=== PATIENT | female | born 1965 | race Caucasian/White ===

== ENCOUNTER 2016-12-13 19:58 | Emergency (ER) | payer SELFPAY ==
[2016-12-13] MEDS ORDERED: NORMAL SALINE 1000 ML 1,000 ML IV ONE (21:01)
[2016-12-13] MEDS ORDERED: ONDANSETRON HCL INJ/PF 4 MG/2 ML SDV IV ONE (21:01)
[2016-12-13 21:59] LABS: ALANINE AMINOTRANSFERASE 16 U/L (9-52); ALKALINE PHOSPHATASE 88 U/L (38-126); ANION GAP 17 (5-19); ASPARTATE AMINO TRANSFERASE 26 U/L (14-36); BILIRUBIN,DIRECT 0.4 mg/dL (0.0-0.4); BILIRUBIN,TOTAL 0.6 mg/dL (0.2-1.3); BLOOD UREA NITROGEN 10 mg/dL (7-20); CARBON DIOXIDE 23 mmol/L (22-30); CHLORIDE 102 mmol/L (98-107); CREATININE RESULT 0.55 mg/dL (0.52-1.25); GLUCOSE 276 mg/dL (75-110); POTASSIUM 3.7 mmol/L (3.6-5.0); SODIUM 142.2 mmol/L (137-145); TOTAL PROTEIN 8.9 g/dL (6.3-8.2)
[2016-12-13 22:11] LABS: HEMATOCRIT 33.3 % (36.0-47.0); HEMOGLOBIN 10.6 g/dL (12.0-15.5); HGB HCT DIFFERENCE -1.5; MEAN CORPUSCULAR HEMOGLOBIN 25.2 pg (27.0-33.4); MEAN CORPUSCULAR HGB CONC 31.8 g/dL (32.0-36.0); MEAN CORPUSCULAR VOLUME 79 fl (80-97); RED CELL DISTRIBUTION WIDTH 18.1 % (11.5-14.0); WHITE BLOOD COUNT 15.4 10^3/uL (4.0-10.5)
[2016-12-13 22:17] LABS: APPEARANCE,URINE CLEAR; BILIRUBIN,URINE NEGATIVE (NEGATIVE); GLUCOSE, URINE >=500 mg/dL (NEGATIVE); KETONES,URINE 80 mg/dL (NEGATIVE); LEUKOCYTE ESTERASE,URINE NEGATIVE (NEGATIVE); NITRITE,URINE NEGATIVE (NEGATIVE); PROTEIN,URINE 100 mg/dL (NEGATIVE); URINE SPECIFIC GRAVITY 1.024; UROBILINOGEN,URINE NEGATIVE mg/dL (<2.0)
[2016-12-13 22:51] LABS: BASOPHILS % (MANUAL) 0 % (0-2); EOSINOPHILS % (MANUAL) 0 % (0-6); LYMPHOCYTES % (MANUAL) 1 % (13-45); TOTAL CELLS COUNTED 100
[2016-12-13 22:53] LABS: TOXIC GRANULATION SLIGHT
[2016-12-13 22:54] LABS: ANISOCYTOSIS 2+; MICROCYTOSIS SLIGHT; OVALOCYTES SLIGHT; SCHISTOCYTES SLIGHT
[2016-12-13] MEDS ORDERED: MAG HYDROX/AL HYDROX/SIMETH SUSP 30 ML UDCUP PO ONE (23:41)
[2016-12-13] MEDS ORDERED: LIDOCAINE 2% VISCOUS SOLN 20 ML UDCUP PO ONE (23:41)
[2016-12-13] MEDS ORDERED: METOCLOPRAMIDE HCL ORAL SOLN 10 MG/10 ML UDCUP PO ONE (23:41)
--- NOTE | 2016-12-13 23:42 | ER Document Report ---
ED General - General Chief Complaint: Vomiting Stated Complaint: VOMITING Time Seen by Provider: 12/13/16 23:10 Notes: Patient is a 51-year-old female with past medical history of insulin-dependent diabetes who presents with 24 hours of epigastric abdominal pain with nonbilious vomiting. Does describe the pain as a dull, constant, cramping pain that has remained constant since onset. Patient does have a history of gastroparesis and states that this feels very similar to prior episodes of exacerbation of that underlying condition. She does not have anything available to try at home to treat her symptoms because she does not currently have a physician. She has been able to tolerate oral intake. Nothing seems to worsen her symptoms. She continues to have bowel movements and pass flatus. She denies any history of obstructions. She denies any chest pain or shortness of breath. She has not had any melena or hematochezia. No hematemesis. TRAVEL OUTSIDE OF THE [place] IN LAST 30 DAYS: No - Related Data Allergies/Adverse Reactions: codeine [Codeine] Allergy (Verified 04/07/13 12:15) Past Medical History - General Information source: Patient - Social History Smoking Status: Unknown if Ever Smoked Frequency of alcohol use: None Drug Abuse: None Lives with: Spouse/Significant other Family History: DM Patient has suicidal ideation: No Patient has homicidal ideation: No Pulmonary Medical History: Denies: Hx Tuberculosis Endocrine Medical History: Reports: Hx Diabetes Mellitus Type 1 Renal/ Medical History: Denies: Hx Peritoneal Dialysis Past Surgical History: Reports: Hx Section - 2, Hx Cholecystectomy. Denies: Hx Pacemaker - Immunizations Hx Diphtheria, Pertussis, Tetanus Vaccination: No Review of Systems - Review of Systems Notes: Constitutional: Negative for fever. HENT: Negative for sore throat. Eyes: Negative for visual changes. Cardiovascular: Negative for chest pain. Respiratory: Negative for shortness of breath. Gastrointestinal: Positive for abdominal pain vomiting Genitourinary: Negative for dysuria. Musculoskeletal: Negative for back pain. Skin: Negative for rash. Neurological: Negative for headaches, weakness or numbness. 10 point ROS negative except as marked above and in HPI. Physical Exam - Vital signs Vitals: Temp Pulse Resp BP Pulse Ox 98.7 F 89 18 183/85 H 98 12/13/16 20:25 12/13/16 20:25 12/13/16 20:25 12/13/16 20:25 12/13/16 20:25 Interpretation: Hypertensive Notes: PHYSICAL EXAMINATION: GENERAL: Well-appearing, well-nourished and in no acute distress. HEAD: Atraumatic, normocephalic. EYES: Pupils equal round and reactive to light, extraocular movements intact, sclera anicteric, conjunctiva are normal. ENT: nares patent, oropharynx clear without exudates. Moist mucous membranes. NECK: Normal range of motion, supple without lymphadenopathy LUNGS: Breath sounds clear to auscultation bilaterally and equal. No wheezes rales or rhonchi. HEART: Regular rate and rhythm without murmurs ABDOMEN: Soft, mild epigastric tenderness to palpation otherwise no focal areas of tenderness, normoactive bowel sounds. No guarding, no rebound. No masses appreciated. EXTREMITIES: Normal range of motion, no pitting or edema. No cyanosis. NEUROLOGICAL: No focal neurological deficits. Moves all extremities spontaneously and on command. PSYCH: Normal mood, normal affect. SKIN: Warm, Dry, normal turgor, no rashes or lesions noted. Course - Re-evaluation Re-evalutation: 12/13/16 23:46 Patient presents with epigastric abdominal pain with associated vomiting, consistent with likely gastroparesis. Patient has no focal abdominal tenderness on examination. Mild epigastric abdominal tenderness. Lipase is normal. No LFT changes. Based on history and exam, I do not suspect ACS, pulmonary embolus, SBO, mesenteric ischemia, acute pancreatitis, biliary pathology, or an abdominal aortic dissection. Patient has had improvement of symptoms here with a GI cocktail. At this time will discharge with return precautions and follow-up recommendations. Verbal discharge instructions given a the bedside and opportunity for questions given. Medication warnings reviewed. Patient is in agreement with this plan and has verbalized understanding of return precautions and the need for primary care follow-up in the next 24-72 hours. - Vital Signs Vital signs: Temp Pulse Resp BP Pulse Ox 98.3 F 91 14 133/75 H 96 12/14/16 01:09 12/14/16 01:09 12/14/16 01:09 12/14/16 01:01 12/14/16 01:01 - Laboratory Result Diagrams: 12/13/16 22:00 12/13/16 21:25 Laboratory results interpreted by me: 12/13/16 12/13/16 12/13/16 21:25 21:25 22:00 WBC 15.4 H Hgb 10.6 L Hct 33.3 L MCV 79 L MCH 25.2 L MCHC 31.8 L RDW 18.1 H Seg Neuts % (Manual) 98 H Lymphocytes % (Manual) 1 L Monocytes % (Manual) 1 L Abs Neuts (Manual) 15.1 H Abs Lymphs (Manual) 0.2 L Glucose 276 H Total Protein 8.9 H Urine Protein 100 H Urine Glucose (UA) >=500 H Urine Ketones 80 H Urine Blood SMALL H Discharge - Discharge Clinical Impression: Gastroparesis Nausea and vomiting Qualifiers: Vomiting type: unspecified Vomiting Intractability: non-intractable Qualified Code(s): R11.2 - Nausea with vomiting, unspecified Condition: Good Disposition: HOME, SELF-CARE Additional Instructions: You may take the Reglan that you have been sent home with as needed for nausea. Use the rectal Phenergan for failure of the oral Reglan. Please follow-up at your earliest ability with a primary care doctor for management of your long- term diabetes. Return for worsening pain, inability to tolerate oral intake for more than 12 hours, fever of greater than 101F, or any other symptoms that are worrisome to you. Prescriptions: Metoclopramide HCl [Reglan 10 mg Tablet] 10 mg PO TID PRN #30 tablet PRN Reason: Promethazine HCl [Phenergan 25 mg Supp.rect] 1 supp CO Q6H #12 supp.rect
[2016-12-14] LABS: ADD ON TESTING BLD IN LAB ACKNOWLEDGE
[2016-12-14 00:10] LABS: LIPASE 87.9 U/L (23-300)
[2016-12-14 01:02] VITALS: BP 133/75
== END 2016-12-14 01:09 | disposition home or self-care (01) ==
LOC: ER 19:58
DX: K31.84 Gastroparesis (principal); R11.2 Nausea with vomiting, unspecified; R10.13 Epigastric pain; E11.9 Type 2 diabetes mellitus without complications; Z79.4 Long term (current) use of insulin
CPT/HCPCS: 99284; 96361; 96374; 36415; 83690; 85025; 80053; 81001; J3490; J2405; J7030

== ENCOUNTER 2017-03-06 05:01 | Emergency (ER) | payer SELFPAY ==
[2017-03-06] MEDS ORDERED: ROCURONIUM BROMIDE INJ 50 MG/5 ML VIAL IV ONE ×2 (05:23→10:22)
[2017-03-06] MEDS ORDERED: MIDAZOLAM HCL 100 ML IV PRN (05:23)
--- NOTE | 2017-03-06 05:30 | ER Document Report ---
ED General - General Stated Complaint: RESPIRATORY DISTRESS Time Seen by Provider: 03/06/17 05:19 Notes: Patient is a 51-year-old female presents with complaint of cardiac arrest. She was last seen normal by the family around 10 PM. They went to check on her and found her unresponsive. Paramedics were called. Paramedics arrived she was in asystole. Paramedics perform CPR for over 10 minutes. She received 5 rounds of epinephrine. The only other rhythm changes that had were asystole and PEA and eventually she had return of spontaneous circulation. They got return of circulation after the fifth epinephrine. She was intubated with a Oscar airway. She was then brought to the ER. She arrives with sinus tachycardia with left bundle branch block. She is breathing on her own however she has no other neurologic signs. Paramedics deny her having any movement of the arms or legs. The only thing patient was given was a small amount of Versed when she started breathing over the manual ventilation. Paramedics do not think the family had any concern for drug abuse. She does have history of type 1 diabetes. No other history is obtainable at this time. TRAVEL OUTSIDE OF THE [place] IN LAST 30 DAYS: No - Related Data Allergies/Adverse Reactions: codeine [Codeine] Allergy (Verified 03/06/17 07:45) Past Medical History - Social History Smoking Status: Unknown if Ever Smoked Frequency of alcohol use: uknown Drug Abuse: Other - unknown Family History: DM Pulmonary Medical History: Denies: Hx Tuberculosis Endocrine Medical History: Reports: Hx Diabetes Mellitus Type 1 Renal/ Medical History: Denies: Hx Peritoneal Dialysis Past Surgical History: Reports: Hx Section - 2, Hx Cholecystectomy. Denies: Hx Pacemaker - Immunizations Hx Diphtheria, Pertussis, Tetanus Vaccination: No Review of Systems - Review of Systems -: Yes ROS unobtainable due to patient's medical condition - Patient isunresponsive and unable to contribute to history. Physical Exam - Vital signs Vitals: Pulse Ox 83 L 03/06/17 05:02 - Notes Notes: General Appearance: Patient comes in unresponsive receiving assisted ventilation. Vitals: reviewed, See vital signs table. Head: no swelling or tenderness to the head Eyes: PERRL, EOMI, Conjuctiva clear Mouth: Oscar airway in place. Throat: No tonsillar inflammation, No airway obstruction, No lymphadenopathy Lungs: No wheezing, No rales, No rhonci, No accessory muscle use, good air exchange bilaterally. Heart: Cardiac rate, Regular rythm, No murmur, no rub Abdomen: Normal BS, soft, No rigidity, No abdominal tenderness, No guarding, no rebound, no abdominal masses, no organomegaly Extremities: good pulses in all extremities, no swelling or tenderness in the extremities, no edema. Skin: warm, dry, appropriate color, no rash Neuro: Patient does have spontaneous respirations. Pupils are 3-4 mm and reactive to light. She has no spontaneous movements of the extremities. No response to painful stimuli. Course - Re-evaluation Re-evalutation: 03/06/17 07:34 His family that she will. The says that he checked around 2 AM and she was sleeping soundly without complications. He woke up little before 5 AM the patient was gurgling and making snoring respirations. That is when he called the indolence. Family says that there is no history of drug abuse and they do not suspect this at all. She is a type I diabetic but says her blood sugars have been doing fairly well. She has had no recent fevers or infections. She felt well last night before going to bed. She was started become hypotensive shortly after getting here. Even after fluid boluses she continued to become a little hypotensive and therefore I placed a central line in place her Justo- Synephrine. I chose Justo-Synephrine because patient was very tachycardic in the 140s to low 150s. Justo-Synephrine running at a low rate. This is stabilized her blood pressure heart rate has come down to low 100s. She has been stable. Patient does have elevated cardiac enzymes. This could be relation to an GA that caused her cardiac arrest or could just be related to her being hypoxic for prolonged period time. Patient has hypokalemia have ordered a K rider. Patient has some acidosis which is to be expected since she was pulseless. Her only neurologic function remains to be normal pupils with reaction as well as breathing on her own. She still does not have any purposeful movement of her extremities. I did speak with Dr. Paris, plant electrician at [facility], who agrees to accept the patient. Patient will be transferred via [facility] to [facility]. Family is agreeable to plan. 03/06/17 07:37 Dictation of this chart was performed using voice recognition software; therefore, there may be some unintended grammatical errors. - Vital Signs Vital signs: Temp Pulse Resp BP Pulse Ox 96.5 F L 16 133/92 H 100 03/06/17 08:05 03/06/17 08:05 03/06/17 08:05 03/06/17 08:05 - Laboratory Result Diagrams: 03/06/17 05:05 03/06/17 05:05 Laboratory results interpreted by me: 03/06/17 03/06/17 03/06/17 05:05 05:05 05:05 WBC 24.6 H Hgb 9.4 L Hct 29.6 L MCH 25.3 L MCHC 31.7 L RDW 18.0 H Abs Neuts (Manual) 17.5 H Abs Monocytes (Manual) 2.5 H Potassium 3.2 L Carbon Dioxide 16 L Anion Gap 20 H Glucose 363 H POC Glucose Calcium 8.0 L AST 308 H ALT 204 H Creatine Kinase 1116 H CK-MB (CK-2) 78.20 H Total Protein 5.9 L Albumin 3.4 L 03/06/17 05:12 WBC Hgb Hct MCH MCHC RDW Abs Neuts (Manual) Abs Monocytes (Manual) Potassium Carbon Dioxide Anion Gap Glucose POC Glucose 378 H Calcium AST ALT Creatine Kinase CK-MB (CK-2) Total Protein Albumin - EKG Interpretation by Me Additional EKG results interpreted by me: 03/06/17 05:28 EKG is reviewed and interpreted by me. EKG shows sinus tachycardia with a rate of 146 bpm. Patient does have a left bundle branch block which is old in comparison to her previous EKG from August 20, 2011. There is duration and QTc intervals are prolonged. Procedures - Central Line Left Internal jugular Consent obtained: No - emergent Central line lumen type: Triple Ultrasound guided: Yes CM at insertion site: 17 Line secured with sutures: Yes Central line post-insertion: Blood return from lumens, Biopatch applied, Sutured , Sterile dressing applied, Position confirmed w/ CXR Number of attempts: 1 - Intubation Orotracheal Airway evaluation: Normal anatomy Mallampati Classification: Class 1 Intubation method: Orotracheal Blade size: 3 Equipment used: Glidescope ETT size: 7.5 ETT secured at: Gums ETT secured at (cm): 23 Breath Sounds after Intubation: Equal Intubation Complications: No complications Critical Care Note - Critical Care Note Total time excluding time spent on procedures (mins): 90 Comments: Critical care time for this patient not including time spent on procedures approximately 90 minutes due to frequent re-evaluations, management of hypertension, management post cardiac risk care, discussion with specialist and family.
[2017-03-06 05:34] LABS: HEMATOCRIT 29.6 % (36.0-47.0); HEMOGLOBIN 9.4 g/dL (12.0-15.5); MEAN CORPUSCULAR HEMOGLOBIN 25.3 pg (27.0-33.4); MEAN CORPUSCULAR HGB CONC 31.7 g/dL (32.0-36.0); MEAN CORPUSCULAR VOLUME 80 fl (80-97); PLATELET COUNT 299 10^3/uL (150-450); RED BLOOD COUNT 3.72 10^6/uL (3.72-5.28); WHITE BLOOD COUNT 24.6 10^3/uL (4.0-10.5)
[2017-03-06] MEDS ORDERED: NORMAL SALINE 1000 ML 1,000 ML IV ONE (05:37)
[2017-03-06] MEDS ORDERED: PHENYLEPHRINE HCL INJ/PF 10 MG/1 ML SDV ONE ×3 (05:42→09:18)
--- NOTE | 2017-03-06 05:53 | RADIOLOGY REPORT (SQ) ---
EXAM DESCRIPTION: CHEST SINGLE VIEW COMPLETED DATE/TIME: 03/06/2017 5:32 am REASON FOR STUDY: post intubation COMPARISON: 08/20/2011. EXAM PARAMETERS: NUMBER OF VIEWS: One view. TECHNIQUE: Single frontal radiographic view of the chest acquired. RADIATION DOSE: NA LIMITATIONS: None. FINDINGS: LUNGS AND PLEURA: Mild interstitial markings, left more than right. MEDIASTINUM AND HILAR STRUCTURES: No masses. Contour normal. HEART AND VASCULAR STRUCTURES: Heart normal in size. Normal vasculature. BONES: No acute findings. HARDWARE: Right upper abdominal clips. Adequate appearing endotracheal and enteric tubes. OTHER: Mild gaseous jejunal prominence. IMPRESSION: Mild interstitial markings suggest mild pulmonary edema ; differential diagnosis include s atypical pneumonitis and/or mild chronic interstitial lung disease. TECHNICAL DOCUMENTATION: JOB ID: [id number] [employer]- All Rights Reserved
[2017-03-06 05:54] LABS: ALANINE AMINOTRANSFERASE 204 U/L (9-52); ALBUMIN 3.4 g/dL (3.5-5.0); ALKALINE PHOSPHATASE 68 U/L (38-126); ASPARTATE AMINO TRANSFERASE 308 U/L (14-36); BILIRUBIN,DIRECT 0.4 mg/dL (0.0-0.4); BILIRUBIN,TOTAL 0.5 mg/dL (0.2-1.3); BLOOD UREA NITROGEN 13 mg/dL (7-20); CREATINE KINASE 1116 U/L (30-135); GLUCOSE 363 mg/dL (75-110); TOTAL PROTEIN 5.9 g/dL (6.3-8.2)
[2017-03-06 05:59] LABS: ABSOLUTE LYMPHOCYTES# (MANUAL) 4.7 10^3/uL (0.5-4.7); ABSOLUTE MONOCYTES # (MANUAL) 2.5 10^3/uL (0.1-1.4); ABSOLUTE NEUTROPHILS# (MANUAL) 17.5 10^3/uL (1.7-8.2); BAND NEUTROPHILS % (MANUAL) 3 % (3-5); BASOPHILS % (MANUAL) 0 % (0-2); EOSINOPHILS % (MANUAL) 0 % (0-6); LYMPHOCYTES % (MANUAL) 19 % (13-45); MONOCYTES % (MANUAL) 10 % (3-13); SEGMENTED NEUTROPHILS % (MAN) 68 % (42-78); TOTAL CELLS COUNTED 100
[2017-03-06 06:00] LABS: ANISOCYTOSIS 1+; HYPOCHROMASIA SLIGHT; OVALOCYTES SLIGHT; PLATELET COMMENT ADEQUATE; POIKILOCYTOSIS SLIGHT
[2017-03-06 06:06] LABS: CREATINE KINASE MB 78.2 ng/mL (<4.55)
[2017-03-06 06:06] LABS: URINE AMPHETAMINES SCREEN NEGATIVE; URINE BARBITURATES SCREEN NEGATIVE; URINE BENZODIAZEPINES SCREEN UNCONFIRMED POSITIVE; URINE COCAINE SCREEN NEGATIVE; URINE MARIJUANA (THC) SCREEN UNCONFIRMED POSITIVE; URINE METHADONE SCREEN NEGATIVE; URINE PHENCYCLIDINE SCREEN NEGATIVE
[2017-03-06 06:07] LABS: ANION GAP 20 (5-19); CARBON DIOXIDE 16 mmol/L (22-30); CHLORIDE 104 mmol/L (98-107); POTASSIUM 3.2 mmol/L (3.6-5.0); SODIUM 139.8 mmol/L (137-145)
[2017-03-06 06:12] LABS: TROPONIN I 12.4 ng/mL
--- NOTE | 2017-03-06 06:37 | RADIOLOGY REPORT (SQ) ---
EXAM DESCRIPTION: CHEST SINGLE VIEW COMPLETED DATE/TIME: 03/06/2017 6:20 am REASON FOR STUDY: central line placement COMPARISON: 03/06/2017. EXAM PARAMETERS: NUMBER OF VIEWS: One view. TECHNIQUE: Single frontal radiographic view of the chest acquired. RADIATION DOSE: NA LIMITATIONS: None. FINDINGS: LUNGS AND PLEURA: Mild interstitial markings, left more than right. MEDIASTINUM AND HILAR STRUCTURES: No masses. Contour normal. HEART AND VASCULAR STRUCTURES: Heart normal in size. Normal vasculature. BONES: No acute findings. HARDWARE: Adequate appearing endotracheal tube and enteric tube. Left internal jugular central line tip at the junction of the left brachiocephalic vein and SVC. OTHER: No other significant finding. IMPRESSION: Mild pulmonary edema pattern. Lines and tubes per TECHNICAL DOCUMENTATION: JOB ID: [id number] [employer]- All Rights Reserved
[2017-03-06] MEDS ORDERED: INSULIN REG, HUMAN 100 UNIT/ML 3 ML VIAL (PYX) IV ONE ×3 (06:44→09:10)
[2017-03-06] MEDS: POTASSI CL 20 MEQ/50 ML RIDER 20 MEQ/50 ML RTUPB IV SCH ×2 (07:19→09:07)
[2017-03-06 09:29] LABS: ARTERIAL BLOOD BASE EXCESS -6.6 mmol/L; ARTERIAL BLOOD H2CO3 1.18 mmol/L (1.05-1.35); ARTERIAL BLOOD HCO3 19.2 mmol/L (20-26); ARTERIAL BLOOD O2 SATURATION 68.6 % (94-98); ARTERIAL BLOOD PCO2 39.3 mmHg (35-45); ARTERIAL BLOOD PH 7.31 (7.35-7.45); ARTERIAL BLOOD TOTAL CO2 20.4 mmol/L (21-25)
[2017-03-06 09:30] LABS: ARTERIAL BLOOD PO2 38.9 mmHg (80-100)
[2017-03-06 09:31] LABS: ARTERIAL BLOOD FIO2 50%
[2017-03-06 10:04] VITALS: BP 125/88
--- NOTE | 2017-03-06 21:08 | EKG REPORT ---
SEVERITY:- ABNORMAL ECG - SINUS TACHYCARDIA LEFT BUNDLE BRANCH BLOCK : Confirmed by: Shantel Zaragoza MD 06-Mar-2017 21:08:02
== END 2017-03-06 09:35 | disposition short-term general hospital (02) ==
LOC: ER 05:01
PROC: 05HN33Z Insertion of Infusion Device into Left Internal Jugular Vein, Percutaneous Approach (ICD-10-PCS; principal; 2017-03-06)
PROC: 0BH17EZ Insertion of Endotracheal Airway into Trachea, Via Natural or Artificial Opening (ICD-10-PCS; 2017-03-06)
DX: I46.9 Cardiac arrest, cause unspecified (principal); I95.9 Hypotension, unspecified; E10.65 Type 1 diabetes mellitus with hyperglycemia; R06.00 Dyspnea, unspecified
CPT/HCPCS: 36556; 31500; 93005; 99291; 99292; 96361; 51701; 51702; 96365; 36415; 82553; 82962; 82803; 82550; 83735; 85025; 80053; 84484; 80307; 71010; 93010; J3490; J2370; J1815; J3480; J7030